=== PATIENT | female | born 1980 | race Caucasian/White ===

== ENCOUNTER 2016-12-11 23:59 | Inpatient (IN) | payer OTHER ==
[2016-12-12] MEDS ORDERED: Lactated Ringers 500 ML IV ONE (00:11)
[2016-12-12] MEDS ORDERED: Lidocaine 1% 30 ML SDV INJECT PRN (00:11)
[2016-12-12] MEDS ORDERED: Acetaminophen 325 MG Tab PO PRN (00:11)
[2016-12-12] MEDS ORDERED: fentaNYL 100 MCG/2 ML SDV IVPUSH PRN (00:11)
[2016-12-12] MEDS ORDERED: Misoprostol 400 MCG (4 X 100 MCG TAB) RECTAL PRN (00:11)
[2016-12-12] MEDS ORDERED: Ondansetron 4 MG/2 ML SDV IV PRN (00:11)
[2016-12-12] MEDS ORDERED: Methylergonovine 0.2 MG/1 ML Amp IM PRN (00:11)
[2016-12-12] MEDS ORDERED: Carboprost Tromethamine 250 MCG/1 ML Amp IM PRN (00:11)
[2016-12-12] MEDS ORDERED: Sodium Chloride 0.9% 10 ML Syringe FLUSH PRN ×2 (00:11→00:16)
[2016-12-12] MEDS ORDERED: Nalbuphine 20 MG/1 ML Amp IVPUSH PRN (00:11)
[2016-12-12] MEDS ORDERED: Lactated Ringers 1,000 ML IV SCH ×2 (00:15→14:45)
[2016-12-12] MEDS ORDERED: Oxytocin/Normal Saline 30 UNIT/500 ML BAG IV SCH (00:15)
--- NOTE | 2016-12-12 00:23 | PCM.LDHP ---
L&D History of Present Illness - General Date of Service: 12/12/16 Admit Problem/Dx: Patient Status Order with Admit Dx/Problem 12/12/16 00:11 Patient Status [ADT] Routine Admission Diagnosis/Problem Admission Diagnosis/Problem care Source of Information: Patient History Limitations: Reports: No Limitations - History of Present Illness Introduction:: 36-year-old at 41w0d presents for IOL for postdates . Patient is feeling well. Baby has been active. She is having Joseph Swartz contractions but nothing regular. No vaginal bleeding or leaking of fluid. No new headaches or vision changes. - Related Data Allergies/Adverse Reactions: Allergies Allergy/AdvReac Type Severity Reaction Status Date / Time No Known Allergies Allergy Verified 12/12/16 00:33 Home Medications: Home Meds Cholecalciferol (Vitamin D3) [Vitamin D] 5,000 unit PO DAILY 12/12/16 [History] Docusate Sodium [Colace] 100 mg PO BID 12/12/16 [History] #103/Iron Fumarate/Fa [ ] 1 each PO DAILY 12/12/16 [ History] Vitamin E 400 unit PO DAILY 12/12/16 [History] Past Medical History [employer] History: Reports: Psychiatric History: Reports: Anxiety, Depression - Past Surgical History Female Surgical History: Reports: D&C (after delivery 2000) Social & Family History - Family History Cardiac: Reports: CAD (Mother) Respiratory: Reports: COPD (Mother) Psychiatric: Reports: Depression (Mother; Brother), Other (See Below) (Alcohol abuse--Father Schizophrenia--Brother) - Tobacco Use Smoking Status *Q: Former Smoker Tobacco Use Within Last Twelve Months: No - Recreational Drug Use Recreational Drug Use: Yes Drug Use in Last 12 Months: Yes Recreational Drug Type: Reports: Marijuana/Hashish, Methamphetamine - Sexual History Sexual History: Reports: Sexually Active - Living Situation & Occupation Living situation: Reports: Occupation: Unemployed H&P Review of Systems - Review of Systems: Review Of Systems: See Below General: Reports: No Symptoms HEENT: Reports: No Symptoms Pulmonary: Reports: No Symptoms Cardiovascular: Reports: No Symptoms Gastrointestinal: Reports: No Symptoms Genitourinary: Reports: No Symptoms Musculoskeletal: Reports: No Symptoms Skin: Reports: No Symptoms L&D Exam - Exam Exam: See Below - OB Specific Contraction Intensity: Irritability Movement: Active Heart Tones: Present Heart Tones per Min: 145 Heart Rate (FHR) Variability: Moderate (6-25 bmp) Presentation: Vertex - Kruger Score Kruger Score Cervix Position: Posterior Kruger Score Consistency: Soft Kruger Score Effacement: 51-70% Kruger Score Dilation: 1-2 cm Kruger Score Infant's Station: -1 ,0 Kruger Score Total: 7 - Exam General: Alert, Oriented HEENT: Conjunctiva Clear, Mucosa Moist & [place] Lungs: Clear to Auscultation, Normal Respiratory Effort Cardiovascular: Regular Rate, Regular Rhythm. No: Systolic Murmur, Diastolic Murmur Genitourinary: Normal external exam Extremities: Pedal Edema (Trace bilaterally) - Problem List (1) Post-dates , delivered, current hospitalization SNOMED Code(s): 391774507 ICD Code: O48.0 - POST-TERM Status: Acute Current Visit: Yes (2) Impaired glucose tolerance during Status: Acute Current Visit: Yes (3) Depression affecting SNOMED Code(s): 45823079125276 ICD Code: O99.340 - OTH MENTAL DISORDERS COMPLICATING , UNSP TRIMESTER; F32.9 - MAJOR DEPRESSIVE DISORDER, SINGLE EPISODE, UNSPECIFIED Status: Acute Current Visit: Yes (4) Not immune to rubella SNOMED Code(s): 609509692 ICD Code: Z78.9 - OTHER SPECIFIED HEALTH STATUS Status: Acute Current Visit: Yes (5) Viral hepatitis complicating SNOMED Code(s): 837036402 ICD Code: O98.419 - VIRAL HEPATITIS COMPLICATING , UNSP TRIMESTER Status: Acute Current Visit: Yes (6) Rh negative status during SNOMED Code(s): 465979011 ICD Code: O09.899 - SUPERVISION OF OTHER HIGH RISK PREGNANCIES, UNSP TRIMESTER Status: Acute Current Visit: Yes (7) Advanced maternal age (AMA) in SNOMED Code(s): 809728297 ICD Code: [id number] - Status: Acute Current Visit: Yes (8) Late care SNOMED Code(s): 514646203 ICD Code: O09.30 - SUPRVSN OF PREG W INSUFFICIENT ANTENAT CARE, UNSP TRIMESTER Status: Acute Current Visit: Yes Problem List Initiated/Reviewed/Updated: Yes Orders Last 24hrs: Active Orders 24 hr Category Date Time Status Patient Status [ADT] Routine ADT 12/12/16 00:11 Ordered Communication Order [RC] ASDIRECTED Care 12/12/16 00:11 Ordered Communication Order [RC] ASDIRECTED Care 12/12/16 00:16 Ordered Communication Order [RC] ASDIRECTED Care 12/12/16 00:16 Ordered Communication Order [RC] ASDIRECTED Care 12/12/16 00:16 Ordered Communication Order [RC] ASDIRECTED Care 12/12/16 00:16 Ordered Communication Order [RC] ASDIRECTED Care 12/12/16 00:16 Ordered Heart Tones [RC] PER UNIT ROUTINE Care 12/12/16 00:11 Ordered Monitoring [RC] PER UNIT ROUTINE Care 12/12/16 00:16 Ordered Notify Provider Vital Signs OB [RC] ASDIRECTED Care 12/12/16 00:11 Ordered Notify Provider [RC] PRN Care 12/12/16 00:11 Ordered Notify Provider [RC] PRN Care 12/12/16 00:16 Ordered Notify Provider [RC] PRN Care 12/12/16 00:16 Ordered Notify Provider [RC] STAT Care 12/12/16 00:16 Ordered Peripheral IV Care [RC] . DIRECTED Care 12/12/16 00:17 Ordered Pump Management, Intrathecal [RC] ASDIRECTED Care 12/12/16 00:11 Ordered Up ad Divya [RC] ASDIRECTED Care 12/12/16 00:11 Ordered Vaginal Exam [RC] PRN Care 12/12/16 00:16 Ordered Vital Signs [RC] PER UNIT ROUTINE Care 12/12/16 00:11 Ordered Clear Liquid Diet [DIET] Diet 12/12/16 Breakfast Ordered CBC W/O DIFF,HEMOGRAM [HEME] Routine Lab 12/12/16 00:11 Ordered DRUG SCREEN,SERUM [CHEM] Routine Lab 12/12/16 00:11 Ordered Acetaminophen [Tylenol] Med 12/12/16 00:11 Ordered 650 mg PO Q4H PRN Carboprost Tromethamine [Hemabate DS] Med 12/12/16 00:11 Ordered 250 mcg IM ASDIRECTED PRN Lactated Ringers @ 125 MLS/HR(1000ml) Med 12/12/16 00:15 Ordered Lactated Ringers [Ringers, Lactated] 1,000 ml IV ASDIRECTED Lactated Ringers [Ringers, Lactated] 500 ml Med 12/12/16 00:11 Ordered IV .BOLUS Lidocaine 1% [Xylocaine-MPF 1%] Med 12/12/16 00:11 Ordered 10 ml INJECT ASDIRECTED PRN Methylergonovine [Methergine] Med 12/12/16 00:11 Ordered 0.2 mg IM ASDIRECTED PRN Misoprostol [Cytotec] Med 12/12/16 00:16 Ordered 25 mcg VAG Q4H PRN Misoprostol [Cytotec] Med 12/11/16 23:24 Pending 25 mcg VAG Q4HR PRN Misoprostol [Cytotec] Med 12/12/16 00:11 Ordered 800 mcg RECTAL ASDIRECTED PRN Nalbuphine [Nubain] Med 12/12/16 00:11 Ordered 10 mg IVPUSH Q3H PRN Ondansetron [Zofran] Med 12/12/16 00:11 Ordered 4 mg IV Q4H PRN Oxytocin 30 Units in NS @ 2 MUNITS/MIN(500ml) Med 12/12/16 00:15 Ordered Oxytocin/Normal Saline [Pitocin in NS 30 UNIT/500 ML] 30 unit in 500 ml IV TITRATE Sodium Chloride 0.9% [Saline Flush] Med 12/12/16 00:11 Ordered 10 ml FLUSH ASDIRECTED PRN Sodium Chloride 0.9% [Saline Flush] Med 12/12/16 00:16 Ordered 10 ml FLUSH ASDIRECTED PRN fentaNYL [Sublimaze] Med 12/12/16 00:11 Ordered 50 mcg IVPUSH Q1H PRN Peripheral IV Insertion Adult [OM.PC] Urgent Oth 12/12/16 00:16 Ordered Saline Lock Insert [OM.PC] Routine Oth 12/12/16 00:11 Ordered Resuscitation Status Routine Resus Stat 12/12/16 00:11 Ordered Medication Orders Acetaminophen (Tylenol) 650 mg PO Q4H PRN PRN Reason: Pain (Mild 1-3) and fever Carboprost Tromethamine (Hemabate Ds) 250 mcg IM ASDIRECTED PRN PRN Reason: HEMORRHAGE Fentanyl (Sublimaze) 50 mcg IVPUSH Q1H PRN PRN Reason: Pain (moderate 4-6) Lactated Ringer's (Ringers, Lactated) 500 mls @ 999 mls/hr IV .BOLUS ONE Stop: 12/12/16 00:41 Lactated Ringer's (Ringers, Lactated) 1,000 mls @ 125 mls/hr IV ASDIRECTED NANY Oxytocin/Sodium Chloride (Pitocin In Ns 30 Unit/500 Ml) 30 unit in 500 mls @ 2 mls/hr IV TITRATE NANY; 2 MUNITS/MIN PRN Reason: Protocol Lidocaine HCl (Xylocaine-Mpf 1%) 10 ml INJECT ASDIRECTED PRN PRN Reason: Perineal Repair Methylergonovine Maleate (Methergine) 0.2 mg IM ASDIRECTED PRN PRN Reason: Hemorrhage Misoprostol (Cytotec) 25 mcg VAG Q4HR PRN PRN Reason: labor induction Misoprostol (Cytotec) 800 mcg RECTAL ASDIRECTED PRN PRN Reason: Hemorrhage Nalbuphine HCl (Nubain) 10 mg IVPUSH Q3H PRN PRN Reason: Pain (moderate 4-6) Ondansetron HCl (Zofran) 4 mg IV Q4H PRN PRN Reason: Nausea/Vomiting Sodium Chloride (Saline Flush) 10 ml FLUSH ASDIRECTED PRN PRN Reason: Keep Vein Open Assessment/Plan Comment:: 1. Admit to L&D 2. Cytotec to be placed when patient has IV in place. Plan for pitocin and AROM when appropriate. 3. Will obtain UDS due to past drug use 4. Patient does desire intrathecal for pain control when indicated 5. Expectant management. Anticipate Finn White MD
[2016-12-12] MEDS: Misoprostol 25 MCG (1/4 of 100 MCG) Tab VAG PRN ×3 (00:53→09:18)
[2016-12-12] MEDS ORDERED: Misoprostol 25 MCG (1/4 of 100 MCG) Tab VAG PRN (07:45)
[2016-12-12] MEDS: Lactated Ringers 1,000 ML IV SCH ×2 (10:43→18:22)
[2016-12-12] MEDS ORDERED: Oxytocin/Normal Saline 60 UNIT/1,000 ML BAG ONE (11:12)
[2016-12-12] MEDS ORDERED: ceFAZolin 2 GM in Premix Bag 1 BAG IV ONE (11:25)
[2016-12-12] MEDS ORDERED: Naloxone 2 MG/2 ML Syringe IVPUSH PRN (14:40)
[2016-12-12] MEDS ORDERED: ePHEDrine 50 MG/ML SDV IVPUSH PRN (14:40)
[2016-12-12] MEDS ORDERED: diphenhydrAMINE 50 MG/ML SDV IVPUSH PRN (14:40)
[2016-12-12] MEDS ORDERED: Acetaminophen/oxyCODONE 325-5 MG Tab PO PRN (14:40)
--- NOTE | 2016-12-12 16:20 | PCM.DEL ---
L & D Note - General Info Date of Service: 12/12/16 Mother's Due Date: 12/05/16 - Delivery Note Cervical Ripening Method: Misoprostil Delivery Outcome: Livebirth Delivery Method: Emergent Presentation: Vertex Nuchal Cord: Present, Reduced Anesthesia Type: Spinal Amniotic Fluid Description: Clear Placenta: Intact Cord: 3 Vessels Estimated Blood Loss: 800 Resuscitation Needed: Yes Benedict: Suctioned, Cathether, Warmed Score 1 min: 3 Score 5 min: 8 Score 10 min: 9 Post Delivery Events: Unplanned Delivery Comments (Free Text/Narrative):: Please see procedure note for details - Patient Data Vitals - Most Recent: Last Vital Signs Temp 35.7 C 12/12/16 13:02 Pulse 58 L 12/12/16 13:03 Resp 17 12/12/16 12:45 BP 100/61 12/12/16 13:03 Pulse Ox 99 12/12/16 12:45 Weight - Most Recent: 82.1 kg I&O - Last 24 Hours: Intake & Output 12/12/16 12/12/16 12/12/16 06:59 14:59 22:59 Intake Total 208 Output Total 75 Balance 133 Lab Results Last 24 Hours: Laboratory Results - last 24 hr 12/12/16 12/12/16 12/12/16 Range/Units 00:35 08:42 08:42 WBC 11.8 H (5.0-10.0) 10^3/uL RBC 3.88 L (4.2-5.4) 10^6/uL Hgb 11.7 L (12.0-16.0) g/dL Hct 34.7 L (37.0-47.0) % MCV 89.4 (80-100) fL MCH 30.2 (27.0-34.0) pg MCHC 33.7 (33.0-35.0) g/dL Plt Count 340 (150-450) 10^3/uL Urine Color Yellow (YELLOW) Urine Appearance Slightly cloudy (CLEAR) Urine pH 6.5 (5.0-9.0) Ur Specific [place] 1.025 (1.005-1.030) Urine Protein Negative (NEGATIVE) Urine Glucose (UA) Negative (NEGATIVE) Urine Ketones Negative (NEGATIVE) Urine Occult Blood Negative (NEGATIVE) Urine Nitrite Negative (NEGATIVE) Urine Bilirubin Negative (NEGATIVE) Urine Urobilinogen 0.2 (0.2-1.0) mg/dL Ur Leukocyte Esterase Negative (NEGATIVE) Urine Opiates Screen Negative (NEGATIVE) Ur Oxycodone Screen Negative (NEGATIVE) Urine Methadone Screen Negative (NEGATIVE) Ur Barbiturates Screen Negative (NEGATIVE) U Tricyclic Antidepress Negative (NEGATIVE) Ur Phencyclidine Scrn Negative (NEGATIVE) Ur Amphetamine Screen Negative (NEGATIVE) U Methamphetamines Scrn Negative (NEGATIVE) Urine MDMA Screen Negative (NEGATIVE) U Benzodiazepines Scrn Negative (NEGATIVE) Urine Cocaine Screen Negative (NEGATIVE) U Marijuana (THC) Screen Positive H (NEGATIVE) Med Orders - Current: Current Medications Acetaminophen (Tylenol) 650 mg PO Q4H PRN PRN Reason: Pain (Mild 1-3) and fever Carboprost Tromethamine (Hemabate Ds) 250 mcg IM ASDIRECTED PRN PRN Reason: HEMORRHAGE Diphenhydramine HCl (Benadryl) 25 mg IVPUSH Q6H PRN PRN Reason: Itching or Nausea Ephedrine Sulfate (Ephedrine Sulfate) 5 mg IVPUSH SEECOMMENT PRN PRN Reason: Other Lactated Ringer's (Ringers, Lactated) 1,000 mls @ 125 mls/hr IV ASDIRECTED NANY Ibuprofen (Motrin) 800 mg PO Q8H PRN PRN Reason: mild pain or fever Ketorolac Tromethamine (Toradol) 15 mg IVPUSH Q6H [facility] Stop: 12/13/16 06:01 Methylergonovine Maleate (Methergine) 0.2 mg IM ASDIRECTED PRN PRN Reason: Hemorrhage Misoprostol (Cytotec) 800 mcg RECTAL ASDIRECTED PRN PRN Reason: Hemorrhage Misoprostol (Cytotec) 25 mcg VAG Q4H PRN PRN Reason: cervical ripening Last Admin: 12/12/16 09:18 Dose: 25 mcg Naloxone HCl (Narcan) 0.1 mg IVPUSH SEECOMMENT PRN PRN Reason: Respiratory Depression Ondansetron HCl (Zofran) 4 mg IV Q4H PRN PRN Reason: Nausea/Vomiting Oxycodone/Acetaminophen (Percocet 325-5 Mg) 1 tab PO Q4H PRN PRN Reason: Pain (moderate 4-6) Oxycodone/Acetaminophen (Percocet 325-5 Mg) 2 tab PO Q4H PRN PRN Reason: Pain (moderate 4-6) Simethicone (Simethicone) 80 mg PO Q4H PRN PRN Reason: Gas Sodium Chloride (Saline Flush) 10 ml FLUSH ASDIRECTED PRN PRN Reason: Keep Vein Open Sodium Chloride (Saline Flush) 10 ml FLUSH ASDIRECTED PRN PRN Reason: Keep Vein Open Discontinued Medications Fentanyl (Sublimaze) 50 mcg IVPUSH Q1H PRN PRN Reason: Pain (moderate 4-6) Lactated Ringer's (Ringers, Lactated) 500 mls @ 999 mls/hr IV .BOLUS ONE Stop: 12/12/16 00:41 Lactated Ringer's (Ringers, Lactated) 1,000 mls @ 125 mls/hr IV ASDIRECTED NANY Oxytocin/Sodium Chloride (Pitocin In Ns 30 Unit/500 Ml) 30 unit in 500 mls @ 2 mls/hr IV TITRATE NANY; 2 MUNITS/MIN PRN Reason: Protocol Last Titration: 12/12/16 14:35 Dose: 50 mls/hr Oxytocin/Sodium Chloride (Pitocin In Ns 30 Unit/500 Ml) Confirm Administered Dose 60 unit in 1,000 mls @ as directed .ROUTE .STK-MED ONE Stop: 12/12/16 11:13 Cefazolin Sodium/Dextrose 2 gm (/ Premix) 50 mls @ 100 mls/hr IV ONETIME ONE Stop: 12/12/16 11:54 Last Admin: 12/12/16 11:30 Dose: 100 mls/hr Lidocaine HCl (Xylocaine-Mpf 1%) 10 ml INJECT ASDIRECTED PRN PRN Reason: Perineal Repair Nalbuphine HCl (Nubain) 10 mg IVPUSH Q3H PRN PRN Reason: Pain (moderate 4-6) - Problem List & Annotations (1) Post-dates , delivered, current hospitalization SNOMED Code(s): 261704582 Code(s): O48.0 - POST-TERM Status: Acute Current Visit: Yes (2) Impaired glucose tolerance during Status: Acute Current Visit: Yes (3) Depression affecting SNOMED Code(s): 62201755659164 Code(s): O99.340 - OTH MENTAL DISORDERS COMPLICATING , UNSP TRIMESTER; F32.9 - MAJOR DEPRESSIVE DISORDER, SINGLE EPISODE, UNSPECIFIED Status: Acute Current Visit: Yes (4) Not immune to rubella SNOMED Code(s): 138986935 Code(s): Z78.9 - OTHER SPECIFIED HEALTH STATUS Status: Acute Current Visit: Yes (5) Viral hepatitis complicating SNOMED Code(s): 760166240 Code(s): O98.419 - VIRAL HEPATITIS COMPLICATING , UNSP TRIMESTER Status: Acute Current Visit: Yes (6) Rh negative status during SNOMED Code(s): 107720693 Code(s): O09.899 - SUPERVISION OF OTHER HIGH RISK PREGNANCIES, UNSP TRIMESTER Status: Acute Current Visit: Yes (7) Advanced maternal age (AMA) in SNOMED Code(s): 620495531 Code(s): HYU8047 - Status: Acute Current Visit: Yes (8) Late care SNOMED Code(s): 116240769 Code(s): O09.30 - SUPRVSN OF PREG W INSUFFICIENT ANTENAT CARE, UNSP TRIMESTER Status: Acute Current Visit: Yes (9) Status post section SNOMED Code(s): 969845280 Code(s): Z98.891 - HISTORY OF UTERINE SCAR FROM PREVIOUS SURGERY Status: Acute Current Visit: Yes - Problem List Review Problem List Initiated/Reviewed/Updated: Yes - My Orders Last 24 Hours: My Active Orders 12/12/16 00:11 Patient Status [ADT] Routine Notify Provider Vital Signs OB [RC] ASDIRECTED Acetaminophen [Tylenol] 650 mg PO Q4H PRN Carboprost Tromethamine [Hemabate DS] 250 mcg IM ASDIRECTED PRN Methylergonovine [Methergine] 0.2 mg IM ASDIRECTED PRN Misoprostol [Cytotec] 800 mcg RECTAL ASDIRECTED PRN Ondansetron [Zofran] 4 mg IV Q4H PRN Sodium Chloride 0.9% [Saline Flush] 10 ml FLUSH ASDIRECTED PRN Saline Lock Insert [OM.PC] Routine Resuscitation Status Routine 12/12/16 00:16 Misoprostol [Cytotec] 25 mcg VAG Q4H PRN Sodium Chloride 0.9% [Saline Flush] 10 ml FLUSH ASDIRECTED PRN Peripheral IV Insertion Adult [OM.PC] Urgent 12/12/16 00:17 Peripheral IV Care [RC] . DIRECTED 12/12/16 14:38 Consult to Personnel Associate [CONS] Routine 12/12/16 14:40 Antiembolic Devices [RC] PER UNIT ROUTINE Bedrest [RC] ASDIRECTED Communication Order [RC] PER UNIT ROUTINE Communication Order [RC] PER UNIT ROUTINE Communication Order [RC] Per Unit Routine Intake and Output [RC] Q2H Notify Provider Intake and Out [RC] ASDIRECTED RT Incentive Spirometry [RC] Q2HWA Urinary Catheter Removal [RC] Per Unit Routine Vital Signs [RC] 04,08,12,16,20,00,04 Consult to Personnel Associate [CONS] Routine Acetaminophen/oxyCODONE [Percocet 325-5 MG] 1 tab PO Q4H PRN Acetaminophen/oxyCODONE [Percocet 325-5 MG] 2 tab PO Q4H PRN Naloxone [Narcan] 0.1 mg IVPUSH SEECOMMENT PRN Simethicone 80 mg PO Q4H PRN diphenhydrAMINE [Benadryl] 25 mg IVPUSH Q6H PRN ePHEDrine [ePHEDrine Sulfate] 5 mg IVPUSH SEECOMMENT PRN Antiembolic Hose [OM.PC] Per Unit Routine Assess Lochia [WOMSER] Per Unit Routine Assess Uterine Involution [WOMSER] Per Unit Routine Breast Pump [WOMSER] Per Unit Routine Sequential Compression Device [OM.PC] Per Unit Routine 12/12/16 14:45 Lactated Ringers [Ringers, Lactated] 1,000 ml IV ASDIRECTED 12/12/16 18:00 Ketorolac [Toradol] 15 mg IVPUSH Q6H 12/12/16 Dinner Regular Diet [DIET] 12/13/16 12:00 CBC W/O DIFF,HEMOGRAM [HEME] Routine 12/13/16 14:00 Ibuprofen [Motrin] 800 mg PO Q8H PRN - Assessment Assessment:: 36-year-old now status post primary section for nonreassuring status. - Plan Plan:: 1. Initiate routine postoperative cares 2. Plans to breast-feed. consult placed 3. Anticipate discharge 12/15/2016 Lucie White MD
--- NOTE | 2016-12-12 16:23 | PCM.PRNOTE ---
- Free Text/Narrative Note: Section Operative Report Date of Surgery: 12/12/2016 Surgeon: Lucie White MD Carding Machine Feeder: Romana Cervantes MD Pre-Operative Diagnosis: Post dates Nonreassuring status Post-Operative Diagnosis: Same Procedure Performed: Primary low transverse section Anesthesia: General EBL: 800 mL IVF: 800 mL Drains: Brooke catheter with 200 mL of urine output Specimens: None Complications: None apparent Findings: Normal uterus, tubes, and ovaries. Indication and Consent: During induction the heart tracing began to show signs of developing hypoxemia. Conservative measures of oxygen supplementation and position changes did not relieve these findings. Nevertheless, the heart tracing continued to show evidence of worsening hypoxemia. section was recommended to the patient for wellbeing. The patient understood that the risks of section include, but are not limited to, visceral or vascular injury, infection, blood loss and need for blood transfusion, prolonged hospitalization, and reoperation. The patient stated understanding and desired to proceed. All questions were answered. Procedure in Detail: The patient was taken to the operating room. Brooke catheter and pneumoboots were placed. She was then prepped and draped in routine fashion in dorsal supine position with a left clinton tilt. Two grams of cefazolin (Ancef) were given for infection prophylaxis. Spinal anesthesia was administered. A Pfannenstiel skin incision was made with a scalpel and carried down to the fascia. The fascia was incised and extended laterally. The rectus musculature was in the midline down to the level of the pubic symphysis. The peritoneum was found to be free of adherent bowel or bladder tissue and entered bluntly. The peritoneal opening was then extended superiorly and inferiorly to the bladder reflection with good visualization of the bladder. The Jan retractor was placed. Brief intraabdominal survey revealed scant, clear peritoneal fluid and thinned-out lower uterine segment. The lower uterine segment was incised with a scalpel. The amniotic sac was ruptured with an Allis clamp and clear fluid was noted. The uterine incision was extended bluntly with lateral and upward traction. The fetus was in vertex position. The head was elevated out of the maternal pelvis with special attention paid to avoid using the uterine incision as a fulcrum. Gentle fundal pressure was applied once the head was brought into the incision. The infant was delivered with minimal difficulty. Bulb suctioning of the 's nose and mouth was performed on the operative field. The cord was clamped and cut in standard fashion, and the was handed over to the awaiting nursery staff. IV oxytocin was initiated to facilitate uterine contractions. The placenta was delivered intact with manual message of the uterine fundus along with gentle cord traction. The uterus was then exteriorized. The inside of the uterus was gently wiped with a lap sponge to assure complete removal of remaining products of conception. The uterine incision was closed with 0 - Vicryl suture in a running locked fashion. A second imbricating layer of 0- Vicryl was also placed. 2 [id number] sutures were placed to achieve hemostasis. The incision was inspected and hemostasis achieved. The ovaries and tubes were visualized and found to be normal. The uterus, tubes, and ovaries were returned to the abdominal cavity. The blood clots and fluid were wiped out of the abdomen and pelvis with moist laparotomy sponges. The uterine incision was re-inspected along with all other incised surfaces and good hemostasis was confirmed. The Jan retractor was removed. The peritoneus was then closed using 2-0 Vicyrl. The fascia was then closed with 2-0 looped PDS suture with care not to include any underlying abdominal contents. The sub-cutaneous layer was reapproximated with plain suture. The skin was closed with 3-0 suture on a Saurav needle in a subcuticular fashion. Dressing was applied. Sponge and instrument counts were reported as correct times two. Pt tolerated procedure well and was taken to PACU in stable condition. Lucie White MD
[2016-12-12] MEDS: Ketorolac 30 MG/ML SDV IVPUSH SCH (17:53)
[2016-12-13] MEDS: Lactated Ringers 1,000 ML IV SCH (00:09)
[2016-12-13] MEDS: Ketorolac 30 MG/ML SDV IVPUSH SCH ×2 (00:09→05:55)
[2016-12-13] MEDS: Acetaminophen/oxyCODONE 325-5 MG Tab PO PRN ×4 (05:55→21:56)
[2016-12-13] MEDS: Simethicone 80 MG Tab.Chew PO PRN ×2 (10:53→17:49)
[2016-12-13] MEDS: Docusate Sodium 100 MG Cap PO PRN ×2 (10:54→21:02)
[2016-12-13] MEDS: Prenatal Multivitamin with Calcium/Folic Acid/Iron Tab PO SCH (10:54)
[2016-12-13] MEDS ORDERED: Oxytocin/Normal Saline 30 UNIT/500 ML BAG IV ONE (10:58)
--- NOTE | 2016-12-13 15:12 | PCM.PNPP ---
- General Info Date of Service: 12/13/16 Subjective Update: 36-year-old, now , POD#1 status post primary section for non- reassuring status. Patient is ambulating without difficulty. Her subramanian has been removed, and she is voiding without difficulty. She is tolerating a general diet. No fever, chills or lightheadedness. She is . No concerns per patient. Functional Status: Reports: Pain Controlled, Tolerating Diet, Ambulating, Urinating. Denies: New Symptoms - Review of Systems General: Reports: No Symptoms HEENT: Reports: No Symptoms Pulmonary: Reports: No Symptoms Cardiovascular: Reports: No Symptoms Gastrointestinal: Reports: No Symptoms Genitourinary: Reports: No Symptoms Musculoskeletal: Reports: No Symptoms Skin: Reports: No Symptoms Neurological: Reports: No Symptoms - General Info Date of Service: 12/13/16 - Patient Data Vital Signs - Most Recent: Last Vital Signs Temp 36.6 C 12/13/16 12:00 Pulse 84 12/13/16 12:00 Resp 18 12/13/16 12:00 BP 98/68 12/13/16 12:00 Pulse Ox 99 12/13/16 12:00 Weight - Most Recent: 82.1 kg I&O - Last 24 Hours: Intake & Output 12/13/16 12/13/16 12/13/16 06:59 14:59 22:59 Output Total 575 400 Balance -575 -400 Lab Results - Last 24 Hours: Laboratory Results - last 24 hr 12/12/16 12/13/16 Range/Units 00:35 13:37 WBC 11.7 H (5.0-10.0) 10^3/uL RBC 3.37 L (4.2-5.4) 10^6/uL Hgb 10.2 L D (12.0-16.0) g/dL Hct 30.7 L (37.0-47.0) % MCV 91.1 (80-100) fL MCH 30.3 (27.0-34.0) pg MCHC 33.2 (33.0-35.0) g/dL Plt Count 315 (150-450) 10^3/uL Blood Type O NEGATIVE Gel Antibody Screen Positive Med Orders - Current: Current Medications Acetaminophen (Tylenol) 650 mg PO Q4H PRN PRN Reason: Pain (Mild 1-3) and fever Carboprost Tromethamine (Hemabate Ds) 250 mcg IM ASDIRECTED PRN PRN Reason: HEMORRHAGE Diphenhydramine HCl (Benadryl) 25 mg IVPUSH Q6H PRN PRN Reason: Itching or Nausea Last Admin: 12/12/16 18:03 Dose: 25 mg Docusate Sodium (Colace) 100 mg PO BID PRN PRN Reason: Stool Softener Last Admin: 12/13/16 10:54 Dose: 100 mg Ephedrine Sulfate (Ephedrine Sulfate) 5 mg IVPUSH SEECOMMENT PRN PRN Reason: Other Hydroxyzine HCl (Atarax) 25 mg PO BEDTIME NANY Lactated Ringer's (Ringers, Lactated) 1,000 mls @ 125 mls/hr IV ASDIRECTED NANY Last Admin: 12/13/16 00:09 Dose: 125 mls/hr Ibuprofen (Motrin) 800 mg PO Q8H PRN PRN Reason: mild pain or fever Methylergonovine Maleate (Methergine) 0.2 mg IM ASDIRECTED PRN PRN Reason: Hemorrhage Misoprostol (Cytotec) 800 mcg RECTAL ASDIRECTED PRN PRN Reason: Hemorrhage Misoprostol (Cytotec) 25 mcg VAG Q4H PRN PRN Reason: cervical ripening Last Admin: 12/12/16 09:18 Dose: 25 mcg Naloxone HCl (Narcan) 0.1 mg IVPUSH SEECOMMENT PRN PRN Reason: Respiratory Depression Ondansetron HCl (Zofran) 4 mg IV Q4H PRN PRN Reason: Nausea/Vomiting Oxycodone/Acetaminophen (Percocet 325-5 Mg) 1 tab PO Q4H PRN PRN Reason: Pain (moderate 4-6) Oxycodone/Acetaminophen (Percocet 325-5 Mg) 2 tab PO Q4H PRN PRN Reason: Pain (moderate 4-6) Last Admin: 12/13/16 10:58 Dose: 2 tab Prenat Multivit/Dinosaur/Iron/Folic Ac ( Plus Iron) 1 each PO WITHBREAKFAST NANY Last Admin: 12/13/16 10:54 Dose: 1 each Simethicone (Simethicone) 80 mg PO Q4H PRN PRN Reason: Gas Last Admin: 12/13/16 10:53 Dose: 80 mg Sodium Chloride (Saline Flush) 10 ml FLUSH ASDIRECTED PRN PRN Reason: Keep Vein Open Sodium Chloride (Saline Flush) 10 ml FLUSH ASDIRECTED PRN PRN Reason: Keep Vein Open Discontinued Medications Fentanyl (Sublimaze) 50 mcg IVPUSH Q1H PRN PRN Reason: Pain (moderate 4-6) Lactated Ringer's (Ringers, Lactated) 500 mls @ 999 mls/hr IV .BOLUS ONE Stop: 12/12/16 00:41 Last Admin: 12/12/16 14:20 Dose: 125 mls/hr Lactated Ringer's (Ringers, Lactated) 1,000 mls @ 125 mls/hr IV ASDIRECTED NANY Oxytocin/Sodium Chloride (Pitocin In Ns 30 Unit/500 Ml) 30 unit in 500 mls @ 2 mls/hr IV TITRATE NANY; 2 MUNITS/MIN PRN Reason: Protocol Last Titration: 12/12/16 15:35 Dose: 0 mls/hr Oxytocin/Sodium Chloride (Pitocin In Ns 30 Unit/500 Ml) Confirm Administered Dose 60 unit in 1,000 mls @ as directed .ROUTE .STK-MED ONE Stop: 12/12/16 11:13 Cefazolin Sodium/Dextrose 2 gm (/ Premix) 50 mls @ 100 mls/hr IV ONETIME ONE Stop: 12/12/16 11:54 Last Admin: 12/12/16 11:30 Dose: 100 mls/hr Lactated Ringer's (Ringers, Lactated) 1,000 mls @ 125 mls/hr IV ASDIRECTED NANY Oxytocin/Sodium Chloride (Pitocin In Ns 30 Unit/500 Ml) 30 unit in 500 mls @ as directed IV .STK-MED ONE Stop: 12/13/16 10:59 Ketorolac Tromethamine (Toradol) 15 mg IVPUSH Q6H NANY Stop: 12/13/16 06:01 Last Admin: 12/13/16 05:55 Dose: 15 mg Lidocaine HCl (Xylocaine-Mpf 1%) 10 ml INJECT ASDIRECTED PRN PRN Reason: Perineal Repair Nalbuphine HCl (Nubain) 10 mg IVPUSH Q3H PRN PRN Reason: Pain (moderate 4-6) - Interaction Infant Disposition, : in Room with Family Interaction: Holding Feeding: Attempted ; Nursed Fair/Poor Support Person: - Recovery Exam Fundal Tone: Firm Fundal Level: At Umbilicus Fundal Placement: Midline Lochia Amount: Small Lochia Color: Rubra/Red Perineum Description: Intact, Minimal Bruising/Swelling Episiotomy/Laceration: None Bladder Status: Indwelling Catheter in Place Urinary Elimination: Indwelling Catheter - Exam General: Alert, Oriented Lungs: Clear to Auscultation, Normal Respiratory Effort Cardiovascular: Regular Rate, Regular Rhythm, No Murmurs Extremities: No Pedal Edema Skin: Warm, Dry, Intact Wound/Incisions: Dressing Dry and Intact - Problem List & Annotations (1) Post-dates , delivered, current hospitalization SNOMED Code(s): 659582138 Code(s): O48.0 - POST-TERM Status: Acute Current Visit: Yes (2) Impaired glucose tolerance during Status: Acute Current Visit: Yes (3) Depression affecting SNOMED Code(s): 91456258982027 Code(s): O99.340 - OTH MENTAL DISORDERS COMPLICATING , UNSP TRIMESTER; F32.9 - MAJOR DEPRESSIVE DISORDER, SINGLE EPISODE, UNSPECIFIED Status: Acute Current Visit: Yes (4) Not immune to rubella SNOMED Code(s): 831296126 Code(s): Z78.9 - OTHER SPECIFIED HEALTH STATUS Status: Acute Current Visit: Yes (5) Viral hepatitis complicating SNOMED Code(s): 709402505 Code(s): O98.419 - VIRAL HEPATITIS COMPLICATING , UNSP TRIMESTER Status: Acute Current Visit: Yes (6) Rh negative status during SNOMED Code(s): 901609663 Code(s): O09.899 - SUPERVISION OF OTHER HIGH RISK PREGNANCIES, UNSP TRIMESTER Status: Acute Current Visit: Yes (7) Advanced maternal age (AMA) in SNOMED Code(s): 880200035 Code(s): FYY8697 - Status: Acute Current Visit: Yes (8) Late care SNOMED Code(s): 908121757 Code(s): O09.30 - SUPRVSN OF PREG W INSUFFICIENT ANTENAT CARE, UNSP TRIMESTER Status: Acute Current Visit: Yes (9) Status post section SNOMED Code(s): 621968140 Code(s): Z98.891 - HISTORY OF UTERINE SCAR FROM PREVIOUS SURGERY Status: Acute Current Visit: Yes - Problem List Review Problem List Initiated/Reviewed/Updated: Yes - My Orders Last 24 Hours: My Active Orders 12/12/16 14:38 Consult to [facility] House Helper [CONS] Routine 12/12/16 14:40 Antiembolic Devices [RC] 08,20 Communication Order [RC] PER UNIT ROUTINE Communication Order [RC] PER UNIT ROUTINE Notify Provider Intake and Out [RC] ASDIRECTED RT Incentive Spirometry [RC] Q2HWA Vital Signs [RC] 04,08,12,16,20,00,04 Consult to Dye House Helper [CONS] Routine Acetaminophen/oxyCODONE [Percocet 325-5 MG] 1 tab PO Q4H PRN Acetaminophen/oxyCODONE [Percocet 325-5 MG] 2 tab PO Q4H PRN Naloxone [Narcan] 0.1 mg IVPUSH SEECOMMENT PRN Simethicone 80 mg PO Q4H PRN diphenhydrAMINE [Benadryl] 25 mg IVPUSH Q6H PRN ePHEDrine [ePHEDrine Sulfate] 5 mg IVPUSH SEECOMMENT PRN Antiembolic Hose [OM.PC] Per Unit Routine Assess Lochia [WOMSER] Per Unit Routine Assess Uterine Involution [WOMSER] Per Unit Routine Breast Pump [WOMSER] Per Unit Routine Sequential Compression Device [OM.PC] Per Unit Routine 12/12/16 Dinner Regular Diet [DIET] 12/13/16 08:44 Docusate Sodium [Colace] 100 mg PO BID PRN 12/13/16 08:45 Vit with Ca/FA/Iron [ Plus Iron] 1 each PO WITHBREAKFAST 12/13/16 12:30 hydrOXYzine HCl [Atarax] 25 mg PO BEDTIME 12/13/16 14:00 Ibuprofen [Motrin] 800 mg PO Q8H PRN 12/13/16 15:15 Ferrous Sulfate 325 mg PO WITHBREAKFAST - Assessment Assessment:: 36-year-old now POD#1 status post primary section for nonreassuring status. - Plan Plan:: 1. Continue routine postoperative cares 2. --fair 3. Anticipate discharge 12/15/2016. Dr. Chase will assume care over the weekend Lucie White MD
[2016-12-13] MEDS: hydrOXYzine HCl 25 MG Tab PO SCH ×2 (16:49→21:01)
[2016-12-13] MEDS ORDERED: Morphine PF 1 MG/ML Amp ONE (16:58)
[2016-12-13] MEDS ORDERED: ePHEDrine 50 MG/ML SDV IV ONE (16:58)
[2016-12-13] MEDS ORDERED: Ondansetron 4 MG/2 ML SDV IV ONE (16:58)
[2016-12-13] MEDS ORDERED: Ketorolac 30 MG/ML SDV IVPUSH ONE (16:58)
[2016-12-13] MEDS: Ibuprofen 800 MG Tab PO PRN (17:49)
[2016-12-13] MEDS: Ferrous Sulfate 325 MG Tab PO SCH (17:49)
[2016-12-14] MEDS: Acetaminophen/oxyCODONE 325-5 MG Tab PO PRN ×4 (02:28→21:43)
[2016-12-14] MEDS: Prenatal Multivitamin with Calcium/Folic Acid/Iron Tab PO SCH (08:15)
[2016-12-14] MEDS: Docusate Sodium 100 MG Cap PO PRN ×2 (08:15→20:41)
[2016-12-14] MEDS: Simethicone 80 MG Tab.Chew PO PRN (08:15)
[2016-12-14] MEDS: Ibuprofen 800 MG Tab PO PRN ×2 (08:16→16:53)
[2016-12-14] MEDS: Ferrous Sulfate 325 MG Tab PO SCH (08:16)
--- NOTE | 2016-12-14 09:15 | PCM.PNPP ---
- General Info Date of Service: 12/14/16 (POD# 2/PPD # 2) Functional Status: Reports: Pain Controlled, Tolerating Diet, Ambulating, Urinating - Review of Systems General: Reports: No Symptoms HEENT: Reports: No Symptoms Pulmonary: Reports: No Symptoms Cardiovascular: Reports: No Symptoms Gastrointestinal: Reports: No Symptoms Genitourinary: Reports: No Symptoms Musculoskeletal: Reports: No Symptoms Neurological: Reports: No Symptoms Psychiatric: Reports: No Symptoms - General Info Date of Service: 12/14/16 (POD # 2/PPD # 2) - Patient Data Vital Signs - Most Recent: Last Vital Signs Temp 97.8 F 12/14/16 08:00 Pulse 89 12/14/16 08:00 Resp 16 12/14/16 08:00 BP 105/67 12/14/16 08:00 Pulse Ox 98 12/14/16 08:00 Weight - Most Recent: 181 lb Lab Results - Last 24 Hours: Laboratory Results - last 24 hr 12/12/16 12/13/16 Range/Units 00:35 13:37 WBC 11.7 H (5.0-10.0) 10^3/uL RBC 3.37 L (4.2-5.4) 10^6/uL Hgb 10.2 L D (12.0-16.0) g/dL Hct 30.7 L (37.0-47.0) % MCV 91.1 (80-100) fL MCH 30.3 (27.0-34.0) pg MCHC 33.2 (33.0-35.0) g/dL Plt Count 315 (150-450) 10^3/uL Rhogam Indicated Yes, baby rh pos H Med Orders - Current: Current Medications Acetaminophen (Tylenol) 650 mg PO Q4H PRN PRN Reason: Pain (Mild 1-3) and fever Carboprost Tromethamine (Hemabate Ds) 250 mcg IM ASDIRECTED PRN PRN Reason: HEMORRHAGE Diphenhydramine HCl (Benadryl) 25 mg IVPUSH Q6H PRN PRN Reason: Itching or Nausea Last Admin: 12/12/16 18:03 Dose: 25 mg Docusate Sodium (Colace) 100 mg PO BID PRN PRN Reason: Stool Softener Last Admin: 12/14/16 08:15 Dose: 100 mg Ephedrine Sulfate (Ephedrine Sulfate) 5 mg IVPUSH SEECOMMENT PRN PRN Reason: Other Ferrous Sulfate (Ferrous Sulfate) 325 mg PO WITHBREAKFAST NANY Last Admin: 12/14/16 08:16 Dose: 325 mg Hydroxyzine HCl (Atarax) 25 mg PO BEDTIME NANY Last Admin: 12/13/16 21:01 Dose: 25 mg Lactated Ringer's (Ringers, Lactated) 1,000 mls @ 125 mls/hr IV ASDIRECTED NANY Last Admin: 12/13/16 00:09 Dose: 125 mls/hr Ibuprofen (Motrin) 800 mg PO Q8H PRN PRN Reason: mild pain or fever Last Admin: 12/14/16 08:16 Dose: 800 mg Methylergonovine Maleate (Methergine) 0.2 mg IM ASDIRECTED PRN PRN Reason: Hemorrhage Misoprostol (Cytotec) 800 mcg RECTAL ASDIRECTED PRN PRN Reason: Hemorrhage Misoprostol (Cytotec) 25 mcg VAG Q4H PRN PRN Reason: cervical ripening Last Admin: 12/12/16 09:18 Dose: 25 mcg Naloxone HCl (Narcan) 0.1 mg IVPUSH SEECOMMENT PRN PRN Reason: Respiratory Depression Ondansetron HCl (Zofran) 4 mg IV Q4H PRN PRN Reason: Nausea/Vomiting Oxycodone/Acetaminophen (Percocet 325-5 Mg) 1 tab PO Q4H PRN PRN Reason: Pain (moderate 4-6) Oxycodone/Acetaminophen (Percocet 325-5 Mg) 2 tab PO Q4H PRN PRN Reason: Pain (moderate 4-6) Last Admin: 12/14/16 08:18 Dose: 2 tab Prenat Multivit/[place]/Iron/Folic Ac ( Plus Iron) 1 each PO WITHBREAKFAST NANY Last Admin: 12/14/16 08:15 Dose: 1 each Simethicone (Simethicone) 80 mg PO Q4H PRN PRN Reason: Gas Last Admin: 12/14/16 08:15 Dose: 80 mg Sodium Chloride (Saline Flush) 10 ml FLUSH ASDIRECTED PRN PRN Reason: Keep Vein Open Sodium Chloride (Saline Flush) 10 ml FLUSH ASDIRECTED PRN PRN Reason: Keep Vein Open Discontinued Medications Ephedrine Sulfate (Ephedrine Sulfate) 20 mg IV .STK-MED ONE Stop: 12/13/16 16:59 Fentanyl (Sublimaze) 50 mcg IVPUSH Q1H PRN PRN Reason: Pain (moderate 4-6) Lactated Ringer's (Ringers, Lactated) 500 mls @ 999 mls/hr IV .BOLUS ONE Stop: 12/12/16 00:41 Last Admin: 12/12/16 14:20 Dose: 125 mls/hr Lactated Ringer's (Ringers, Lactated) 1,000 mls @ 125 mls/hr IV ASDIRECTED NANY Oxytocin/Sodium Chloride (Pitocin In Ns 30 Unit/500 Ml) 30 unit in 500 mls @ 2 mls/hr IV TITRATE NANY; 2 MUNITS/MIN PRN Reason: Protocol Last Titration: 12/12/16 15:35 Dose: 0 mls/hr Oxytocin/Sodium Chloride (Pitocin In Ns 30 Unit/500 Ml) Confirm Administered Dose 60 unit in 1,000 mls @ as directed .ROUTE .STK-MED ONE Stop: 12/12/16 11:13 Cefazolin Sodium/Dextrose 2 gm (/ Premix) 50 mls @ 100 mls/hr IV ONETIME ONE Stop: 12/12/16 11:54 Last Admin: 12/12/16 11:30 Dose: 100 mls/hr Lactated Ringer's (Ringers, Lactated) 1,000 mls @ 125 mls/hr IV ASDIRECTED NANY Oxytocin/Sodium Chloride (Pitocin In Ns 30 Unit/500 Ml) 30 unit in 500 mls @ as directed IV .STK-MED ONE Stop: 12/13/16 10:59 Ketorolac Tromethamine (Toradol) 15 mg IVPUSH Q6H NANY Stop: 12/13/16 06:01 Last Admin: 12/13/16 05:55 Dose: 15 mg Ketorolac Tromethamine (Toradol) 30 mg IVPUSH .STK-MED ONE Stop: 12/13/16 16:59 Lidocaine HCl (Xylocaine-Mpf 1%) 10 ml INJECT ASDIRECTED PRN PRN Reason: Perineal Repair Morphine Sulfate (Duramorph Pf) 0.3 mg .XX .STK-MED ONE Stop: 12/13/16 16:59 Nalbuphine HCl (Nubain) 10 mg IVPUSH Q3H PRN PRN Reason: Pain (moderate 4-6) Ondansetron HCl (Zofran) 4 mg IV .STK-MED ONE Stop: 12/13/16 16:59 - Infant Interaction Infant Disposition, : [place] in Room with Family Infant Interaction: Holding Infant Infant Feeding: Breastfed ; Nursed Well, Continues to Breastfeed Support Person: - Recovery Exam Fundal Tone: Firm Fundal Level: 2 Fingerbreadths Below Umbilicus Fundal Placement: Midline Lochia Amount: Scant Lochia Color: Rubra/Red Perineum Description: Intact, Minimal Bruising/Swelling Episiotomy/Laceration: None Bladder Status: Nonpalpable, Voiding Urinary Elimination: Voided - Exam General: Alert, Oriented, Cooperative, No Acute Distress HEENT: Pupils Equal, Pupils Reactive, EOMI Neck: Supple Lungs: Clear to Auscultation, Normal Respiratory Effort Cardiovascular: Regular Rate, Regular Rhythm, No Murmurs GI/Abdominal Exam: Normal Bowel Sounds, Soft, Non-Tender, No Distention Extremities: Normal Inspection, Normal Range of Motion, Non-Tender, No Pedal Edema Skin: Warm, Dry, Intact Wound/Incisions: Healing Well, Dressing Dry and Intact Neurological: No New Focal Deficit, Normal Gait Psy/Mental Status: Alert, Normal Affect, Normal Mood - Problem List Review Problem List Initiated/Reviewed/Updated: Yes - Assessment Assessment:: POD#2 status post primary section. Doing well - Plan Plan:: 1. Continue present care 2. Anticipate discharge tomorrow 3. All questions answered
[2016-12-14] MEDS ORDERED: Bisacodyl 10 MG Supp RECTAL ONE (19:46)
[2016-12-14] MEDS: hydrOXYzine HCl 25 MG Tab PO SCH (21:43)
[2016-12-15] MEDS: Ibuprofen 800 MG Tab PO PRN (04:38)
[2016-12-15] MEDS: Acetaminophen/oxyCODONE 325-5 MG Tab PO PRN ×2 (04:39→08:37)
[2016-12-15] MEDS: Prenatal Multivitamin with Calcium/Folic Acid/Iron Tab PO SCH (08:36)
[2016-12-15] MEDS: Ferrous Sulfate 325 MG Tab PO SCH (08:36)
[2016-12-15] MEDS: Simethicone 80 MG Tab.Chew PO PRN (08:36)
[2016-12-15] MEDS: Docusate Sodium 100 MG Cap PO PRN (08:37)
--- NOTE | 2016-12-15 10:14 | PCM.PNPP ---
- General Info Date of Service: 12/15/16 (POD # 3/ PPD # 3 Primary LTC/S) Functional Status: Reports: Pain Controlled, Tolerating Diet, Ambulating, Urinating - Review of Systems General: Reports: No Symptoms HEENT: Reports: No Symptoms Pulmonary: Reports: No Symptoms Cardiovascular: Reports: No Symptoms Gastrointestinal: Reports: No Symptoms Genitourinary: Reports: No Symptoms Musculoskeletal: Reports: No Symptoms Skin: Reports: No Symptoms Neurological: Reports: No Symptoms Psychiatric: Reports: No Symptoms - General Info Date of Service: 12/15/16 (POD# 3/PPD # 3 S/P Primary LTC/S) - Patient Data Vital Signs - Most Recent: Last Vital Signs Temp 97.7 F 12/15/16 08:00 Pulse 91 12/15/16 08:00 Resp 18 12/15/16 08:00 BP 122/81 12/15/16 08:00 Pulse Ox 100 12/15/16 08:00 Weight - Most Recent: 181 lb I&O - Last 24 Hours: Intake & Output 12/14/16 12/15/16 12/15/16 22:59 06:59 14:59 Intake Total 1300 Balance 1300 Lab Results - Last 24 Hours: Laboratory Results - last 24 hr 12/12/16 12/12/16 Range/Units 00:35 00:35 Maternal Bleed Neg Antibody Identification Anti-D Med Orders - Current: Current Medications Acetaminophen (Tylenol) 650 mg PO Q4H PRN PRN Reason: Pain (Mild 1-3) and fever Last Admin: 12/14/16 20:41 Dose: 650 mg Carboprost Tromethamine (Hemabate Ds) 250 mcg IM ASDIRECTED PRN PRN Reason: HEMORRHAGE Diphenhydramine HCl (Benadryl) 25 mg IVPUSH Q6H PRN PRN Reason: Itching or Nausea Last Admin: 12/12/16 18:03 Dose: 25 mg Docusate Sodium (Colace) 100 mg PO BID PRN PRN Reason: Stool Softener Last Admin: 12/15/16 08:37 Dose: 100 mg Ephedrine Sulfate (Ephedrine Sulfate) 5 mg IVPUSH SEECOMMENT PRN PRN Reason: Other Ferrous Sulfate (Ferrous Sulfate) 325 mg PO WITHBREAKFAST NANY Last Admin: 12/15/16 08:36 Dose: 325 mg Hydroxyzine HCl (Atarax) 25 mg PO BEDTIME [facility] Last Admin: 12/14/16 21:43 Dose: 25 mg Lactated Ringer's (Ringers, Lactated) 1,000 mls @ 125 mls/hr IV ASDIRECTED NANY Last Admin: 12/13/16 00:09 Dose: 125 mls/hr Ibuprofen (Motrin) 800 mg PO Q8H PRN PRN Reason: mild pain or fever Last Admin: 12/15/16 04:38 Dose: 800 mg Methylergonovine Maleate (Methergine) 0.2 mg IM ASDIRECTED PRN PRN Reason: Hemorrhage Misoprostol (Cytotec) 800 mcg RECTAL ASDIRECTED PRN PRN Reason: Hemorrhage Misoprostol (Cytotec) 25 mcg VAG Q4H PRN PRN Reason: cervical ripening Last Admin: 12/12/16 09:18 Dose: 25 mcg Naloxone HCl (Narcan) 0.1 mg IVPUSH SEECOMMENT PRN PRN Reason: Respiratory Depression Ondansetron HCl (Zofran) 4 mg IV Q4H PRN PRN Reason: Nausea/Vomiting Oxycodone/Acetaminophen (Percocet 325-5 Mg) 1 tab PO Q4H PRN PRN Reason: Pain (moderate 4-6) Oxycodone/Acetaminophen (Percocet 325-5 Mg) 2 tab PO Q4H PRN PRN Reason: Pain (moderate 4-6) Last Admin: 12/15/16 08:37 Dose: 2 tab Prenat Multivit/[place]/Iron/Folic Ac ( Plus Iron) 1 each PO WITHBREAKFAST [facility] Last Admin: 12/15/16 08:36 Dose: 1 each Simethicone (Simethicone) 80 mg PO Q4H PRN PRN Reason: Gas Last Admin: 12/15/16 08:36 Dose: 80 mg Sodium Chloride (Saline Flush) 10 ml FLUSH ASDIRECTED PRN PRN Reason: Keep Vein Open Sodium Chloride (Saline Flush) 10 ml FLUSH ASDIRECTED PRN PRN Reason: Keep Vein Open Discontinued Medications Bisacodyl (Dulcolax) 10 mg RECTAL ONETIME ONE Stop: 12/14/16 19:47 Last Admin: 12/14/16 20:37 Dose: 10 mg Ephedrine Sulfate (Ephedrine Sulfate) 20 mg IV .STK-MED ONE Stop: 12/13/16 16:59 Fentanyl (Sublimaze) 50 mcg IVPUSH Q1H PRN PRN Reason: Pain (moderate 4-6) Lactated Ringer's (Ringers, Lactated) 500 mls @ 999 mls/hr IV .BOLUS ONE Stop: 12/12/16 00:41 Last Admin: 12/12/16 14:20 Dose: 125 mls/hr Lactated Ringer's (Ringers, Lactated) 1,000 mls @ 125 mls/hr IV ASDIRECTED NANY Oxytocin/Sodium Chloride (Pitocin In Ns 30 Unit/500 Ml) 30 unit in 500 mls @ 2 mls/hr IV TITRATE NANY; 2 MUNITS/MIN PRN Reason: Protocol Last Titration: 12/12/16 15:35 Dose: 0 mls/hr Oxytocin/Sodium Chloride (Pitocin In Ns 30 Unit/500 Ml) Confirm Administered Dose 60 unit in 1,000 mls @ as directed .ROUTE .STK-MED ONE Stop: 12/12/16 11:13 Cefazolin Sodium/Dextrose 2 gm (/ Premix) 50 mls @ 100 mls/hr IV ONETIME ONE Stop: 12/12/16 11:54 Last Admin: 12/12/16 11:30 Dose: 100 mls/hr Lactated Ringer's (Ringers, Lactated) 1,000 mls @ 125 mls/hr IV ASDIRECTED NANY Oxytocin/Sodium Chloride (Pitocin In Ns 30 Unit/500 Ml) 30 unit in 500 mls @ as directed IV .STK-MED ONE Stop: 12/13/16 10:59 Ketorolac Tromethamine (Toradol) 15 mg IVPUSH Q6H NANY Stop: 12/13/16 06:01 Last Admin: 12/13/16 05:55 Dose: 15 mg Ketorolac Tromethamine (Toradol) 30 mg IVPUSH .STK-MED ONE Stop: 12/13/16 16:59 Lidocaine HCl (Xylocaine-Mpf 1%) 10 ml INJECT ASDIRECTED PRN PRN Reason: Perineal Repair Morphine Sulfate (Duramorph Pf) 0.3 mg .XX .STK-MED ONE Stop: 12/13/16 16:59 Nalbuphine HCl (Nubain) 10 mg IVPUSH Q3H PRN PRN Reason: Pain (moderate 4-6) Ondansetron HCl (Zofran) 4 mg IV .STK-MED ONE Stop: 12/13/16 16:59 - Interaction Disposition, : [place] in Room with Family Infant Interaction: Holding Infant Feeding: Breastfed Infant; Nursed Well, Continues to Breastfeed Support Person: - Recovery Exam Fundal Tone: Firm Fundal Level: Unable to Assess Fundal Placement: Midline Lochia Amount: Small Lochia Color: Brownish Perineum Description: Intact, Minimal Bruising/Swelling Episiotomy/Laceration: None Bladder Status: Voiding Urinary Elimination: Voided - Exam General: Alert, Oriented, Cooperative, No Acute Distress HEENT: Pupils Equal, Pupils Reactive Neck: Supple Lungs: Clear to Auscultation, Normal Respiratory Effort Cardiovascular: Regular Rate, Regular Rhythm GI/Abdominal Exam: Normal Bowel Sounds, Soft, Non-Tender, No Organomegaly Extremities: Normal Inspection, Normal Range of Motion, Non-Tender, No Pedal Edema Skin: Warm, Dry, Intact Wound/Incisions: Healing Well Neurological: No New Focal Deficit Psy/Mental Status: Alert, Normal Affect, Normal Mood - Problem List Review Problem List Initiated/Reviewed/Updated: Yes - My Orders Last 24 Hours: My Active Orders 12/15/16 10:08 Ready for Discharge [RC] PER UNIT ROUTINE - Assessment Assessment:: POD#3 status post primary section. Doing well - Plan Plan:: 1. Follow-up with Dr. White this week for baby 2. Discharge today 3. All questions answered 4. Motrin/Percocet for pain.
--- NOTE | 2016-12-16 01:53 | DISCH ---
INDICATION FOR ADMISSION: Ms. Agarwal is a 36-year-old, 3, para 2-0-0-2 female at 41 weeks' gestation, who reported to Labor and Delivery for induction of labor at 41 weeks' gestation. She did have Cytotec placed and then once she was dilated, she had artificial rupture of membranes and Pitocin IV. During her labor, there was noted to be variable and late decelerations with decreased variability despite resuscitation efforts with fluid, oxygen, and position change. A primary section was called. She had a delivery of a viable female infant, weighing 7 pounds 13 ounces with scores of 3 at 1 minute and 8 at 5 minutes, and was 19.5 inches long. She went from the operating room to recovery and then to the OB floor. She tolerated the rest of her hospital stay quite well. She was afebrile. Vital signs were stable. She tolerated her diet well and ambulated quite well. No complications occurred throughout her hospital stay. She had minimal lochia. Her incision did well with no erythema or drainage noted. She was discharged to home on postop day #3. LABORATORY AND DIAGNOSTIC STUDIES: 12/12/2016; WBC 11.8, hemoglobin 11.7, hematocrit 34.7, platelet count 340,000. Urine drug screen was positive for marijuana. 12/13/2016; WBC 11.7, hemoglobin 10.2, hematocrit 30.7, platelet count 215,000. DISCHARGE INSTRUCTIONS: 1. Discharge to home. 2. Follow up with Dr. White next week with the . 3. No douching, tampons, or intercourse for 6 weeks. 4. Discharge instructions including activity, followup, medications, diet, and wound care were discussed with the patient. She understands these and is willing to comply with these. 5. Ibuprofen 800 mg, one tablet every 6 to 8 hours p.r.n. for pain. 6. Percocet one to two tabs every 4 to 6 hours p.r.n. for pain. 7. Breast pump given to the patient. 8. All questions answered. DISCHARGE DIAGNOSES: 1. Forty one weeks' intrauterine . 2. Pitocin induction. 3. Non-reassuring status/ intolerance to labor. 4. Advanced maternal age. 5. Positive marijuana/THC on urine drug screen on admission. 6. Primary low transverse section via Pfannenstiel skin incision. 7. Delivery of a viable female infant, weighing 7 pounds 13 ounces, length 19.5 inches long, and with scores of 3 at 1 minute and 8 at 5 minutes. 8. Spinal anesthesia with Duramorph. [facility] /[id number]
== END 2016-12-15 10:55 | disposition home or self-care (01) | DRG 765 ==
LOC: DL.OBCHECK 23:59 → EEVIPCON 12-12 00:01 → DL.OB 12-12 00:01 → OBSVTOIN 12-12 11:44
PROVIDERS: ADMIT Family Medicine; ATTEND Family Medicine
PROC: 10D00Z1 Extraction of Products of Conception, Low, Open Approach (ICD-10-PCS; principal; 2016-12-12)
PROC: 3E0P7VZ Introduction of Hormone into Female Reproductive, Via Natural or Artificial Opening (ICD-10-PCS; 2016-12-12)
DX: O48.0 Post-term pregnancy (principal); O99.324 Drug use complicating childbirth; Z37.0 Single live birth; Z3A.41 41 weeks gestation of pregnancy; Z87.891 Personal history of nicotine dependence; O76 Abnormality in fetal heart rate and rhythm complicating labor and delivery; F12.90 Cannabis use, unspecified, uncomplicated
CPT/HCPCS: 01961; 36415; 80305; 81003; 85027; 85461; 86850; 86870; 86900; 86901; A9270-GY; J0690; J1200; J1885; J2274; J2405; J2590; J2790; J7120

== ENCOUNTER 2022-03-31 21:48 | Emergency (ER) | payer SELFPAY ==
[2022-03-31 22:58] LABS: AMPHETAMINES,URINE NEGATIVE (NEGATIVE); BARBITURATES,URINE NEGATIVE (NEGATIVE); BENZODIAZEPINE,URINE NEGATIVE (NEGATIVE); MDMA (ECSTASY), URINE NEGATIVE (NEGATIVE); METHADONE,URINE NEGATIVE (NEGATIVE); METHAMPHETAMINES,URINE NEGATIVE (NEGATIVE); OPIATES,URINE NEGATIVE (NEGATIVE); OXYCODONE,URINE NEGATIVE (NEGATIVE); PHENCYCLIDINE,URINE NEGATIVE (NEGATIVE); TCA,URINE NEGATIVE (NEGATIVE)
[2022-04-02 12:46] LABS: C.TRACHOMATIS BY TMA Negative (Negative); N.GONORRHOEAE BY TMA Negative (Negative)
== END 2022-04-01 00:01 | disposition home or self-care (01) ==
LOC: DL.ED 21:48
DX: Z20.2 Contact with and (suspected) exposure to infections with a predominantly sexual mode of transmission (principal); Z72.0 Tobacco use
CPT/HCPCS: 80305-QW; 81003; 81025; 87491; 87591; 99283